=== PATIENT | male | born 1965 | race Caucasian/White ===

== ENCOUNTER 2019-12-09 09:27 | Outpatient (CLI) | payer OTHER ==
[2019-12-17] MEDS ORDERED: Psyllium Seed PO (12:43)
[2019-12-17] MEDS ORDERED: LISI-603 PO (12:43)
[2019-12-17] MEDS ORDERED: SENN-261 PO (12:43)
[2019-12-17] MEDS ORDERED: DOCU-270 PO (12:43)
[2019-12-17] MEDS ORDERED: HYDR-4384 PO (12:53)
[2019-12-17] MEDS ORDERED: ASPI-992 PO (12:53)
== END 2019-12-09 23:59 | disposition home or self-care (01) ==
LOC: DS 09:27 → LAB 23:59
PROVIDERS: ATTEND Specialist
DX: Z01.812 Encounter for preprocedural laboratory examination (principal); Z11.59 Encounter for screening for other viral diseases

== ENCOUNTER 2019-12-14 05:12 | Inpatient (IN) | payer OTHER ==
[~2019-12-14] VITALS: Ht 162.6 cm; Wt 90.7 kg
[2019-12-14] VITALS (7 sets, daily range): BP systolic 77–121; BP diastolic 41–80
--- NOTE | 2019-12-14 05:35 | NUR ---
RN sammie admission notes Received Pt for day surgery ( L total hip arthroplasty) with Dr. Tanner. Pt came from home. Pt is alert and orientedX4. Respiration is normal. No SOB. No S/S of distress noted. Pt status is NPO since last night. Inserted new IV sites at LAC# 20 with good blood returned. Pt tolerated activity well. VS is stable. Afebrile. Surgery consent is signed by Pt. Made aware of risks and benefits. Pt verbalize understanding. Pt is able to ambulate with a steady gait and with a cane. Skin assessment is done and performed. Pt's skin is intact. Pt's belonging was checked by TRINIDAD Piña. Reorient Pt to the room and the use of call light. Pt verbalize understanding. Will continue to monitor.
[2019-12-14] MEDS ORDERED: MENTHOL/CETYLPYRD (CEPACOL) 1 LOZ LOZENGE PO PRN (06:30)
[2019-12-14] MEDS ORDERED: HYDROMORPHONE 1 MG/1 ML DISP.SYRIN IV PRN ×2 (06:30→09:30)
[2019-12-14] MEDS ORDERED: diphenhydrAMINE HCL 25 MG CAPSULE PO PRN (06:30)
[2019-12-14] MEDS ORDERED: ONDANSETRON HCL/PF 4 MG/2 ML VIAL IV PRN (06:30)
[2019-12-14] MEDS ORDERED: HYDROCODONE/APAP 5/325MG 1 EACH TABLET PO PRN ×2 (06:30→09:30)
[2019-12-14] MEDS ORDERED: MAG HYDROX/AL HYDROX/SIMETH 30 ML UDC PO PRN (06:30)
[2019-12-14] MEDS ORDERED: CLONIDINE HCL 0.1 MG TABLET PO PRN (06:30)
[2019-12-14] MEDS ORDERED: MAGNESIUM HYDROXIDE 30 ML UDC PO PRN (06:30)
--- NOTE | 2019-12-14 06:30 | NUR ---
MELVIN cochran notes Pt is going for surgery.
[2019-12-14] MEDS ORDERED: BACITRACIN 50000 UNITS/VIAL ONE (06:38)
[2019-12-14] MEDS ORDERED: ANESTHESIA TRAY IN PYXIS 1 EA TRAY MC ONE (06:38)
[2019-12-14] MEDS ORDERED: BUPIVACAINE 0.5 % PF 150 MG/30 ML VIAL ONE (06:38)
[2019-12-14] MEDS ORDERED: FLUMAZENIL 0.5 MG VIAL ONE (06:48)
[2019-12-14] MEDS ORDERED: SEVOFLURANE 250 ML BOTTLE IH ONE (06:48)
[2019-12-14] MEDS ORDERED: MIDAZOLAM HCL 2 MG/2ML VIAL ONE (06:48)
[2019-12-14] MEDS ORDERED: SCOPOLAMINE HBR 1 EA PATCH.TD72 TD ONE (06:49)
--- NOTE | 2019-12-14 06:50 | NUR ---
MELVIN Weber at the bedside. Addendum: 12/14/19 at 0800 by FELIPE MONSON RN Dr. Weber at the bed side at 0550.
[2019-12-14] MEDS ORDERED: TRANEXAMIC ACID 3,000 MG in SODIUM CHLORIDE IRRIG SOLUTION 70 ML IR ONE (07:00)
[2019-12-14] MEDS ORDERED: PROPOFOL 100 ML ONE (07:46)
[2019-12-14] MEDS ORDERED: FENTANYL PF 100MCG/2ML AMPUL ONE (08:52)
[2019-12-14] MEDS ORDERED: NITROGLYCERIN 0.4 MG/TAB BOTTLE ONE (09:14)
[2019-12-14] MEDS ORDERED: DULCOLAX 10 MG/SUPP.RECT RC PRN (09:30)
[2019-12-14] MEDS ORDERED: SENOKOT 8.6 MG TABLET PO PRN (09:30)
[2019-12-14] MEDS ORDERED: AMBIEN 5 MG TABLET PO PRN (09:30)
[2019-12-14] MEDS ORDERED: TYLENOL 650 MG TABLET PO PRN (09:30)
[2019-12-14] MEDS ORDERED: COLACE 250 MG CAPSULE PO PRN (09:30)
--- NOTE | 2019-12-14 10:30 | NUR ---
RN NOTES PATIENT BACK FROM SURGERY AT THIS TIME ADMIT TELE PER COMPUTER GRAPHIC DESIGNER ORDER FOR OBSERVATION, tele monitor on sr- 79, V/S TAKEN BP 77/48, p-75, r-19, o2-2l 100 nc. patient refused pain at this time, no acute respiratory distress, dressing intact on right hip, abduction pillow on. iv access on left ac area intact started LR @ 100 ml/hr. Franks catheter darning light yellow output. post op orders taken and carried out. continued monitoring.
[2019-12-14] MEDS: DOCUSATE SODIUM 100 MG CAPSULE PO SCH ×2 (10:47→18:15)
[2019-12-14] MEDS: IV LR 1000 ML 1,000 ML IV PRN ×2 (10:50→23:13)
[2019-12-14] MEDS ORDERED: LISI40TA4 PO (11:08)
[2019-12-14] MEDS ORDERED: PANT40TA2 PO (11:08)
[2019-12-14] MEDS ORDERED: HYDR25TA4 PO (11:08)
[2019-12-14] MEDS ORDERED: NITROGLYCERIN 0.4 MG/TAB BOTTLE SL PRN (11:30)
[2019-12-14] MEDS ORDERED: Medication Not On Formulary EA (Lisinopril 40 MG) PO SCH (11:30)
[2019-12-14] MEDS ORDERED: PANTOPRAZOLE 40 MG TABLET.DR PO SCH (11:30)
[2019-12-14 12:16] LABS: BASOPHILS % (AUTO) 0.1 % (0.0-2.0); HEMATOCRIT 42 % (39-51); HEMOGLOBIN 13.7 g/dL (13.5-17.5); LYMPHOCYTES # (AUTO) 0.7 /CMM (0.8-4.8); LYMPHOCYTES % (AUTO) 5.9 % (20.0-44.0); MEAN CORPUSCULAR HGB CONC 33 g/dl (31.0-36.0); MEAN CORPUSCULAR VOLUME 88 fL (80-96); MONOCYTES # (AUTO) 0.3 /CMM (0.1-1.30); MONOCYTES % (AUTO) 2.7 % (2.0-12.0); NEUTROPHILS # (AUTO) 11.2 /CMM (1.8-8.9); NEUTROPHILS % (AUTO) 91.3 % (43.0-81.0); PLATELET COUNT (AUTO) 209 /CMM (150-450); RED BLOOD CELL COUNT(AUTO) 4.76 MIL/uL (4.5-6.0); WHITE BLOOD COUNT (AUTO) 12.2 K/uL (4.3-11.0)
[2019-12-14 12:21] LABS: CALCIUM, SERUM 8.1 mg/dL (8.5-10.1); CREATININE 0.9 mg/dL (0.6-1.3); POTASSIUM 3.6 mmol/L (3.5-5.1)
[2019-12-14 12:27] LABS: BILIRUBIN,TOTAL 0.5 mg/dL (0.2-1.0); PHOSPHORUS 2.9 mg/dL (2.5-4.9); TOTAL PROTEIN, SERUM 6.9 g/dL (6.4-8.2)
[2019-12-14] MEDS: TAMSULOSIN 0.4 MG CAP.SR.24H PO SCH ×2 (12:50→21:02)
--- NOTE | 2019-12-14 13:00 | NUR ---
RN NOTES PATIENT SCHEDULED CT OF HEART WITH 3/D EMAGS, CONSENT SIGNED.
--- NOTE | 2019-12-14 13:30 | NUR ---
RN NOTES SEEN PATIENT BY PT . PATIENT SEAT EDGE OF THE BED, AND ASSIST BACK TO THE BED.
[2019-12-14] MEDS: ANCEF 1 G in IV D5W 50 ML IV SCH ×2 (15:43→23:09)
[2019-12-14] MEDS: LISINOPRIL (20MG) 20 MG TABLET PO SCH ×2 (17:00→18:15)
--- NOTE | 2019-12-14 17:50 | NUR ---
rn notes patient state Franks catheter is painful, and asking possibility to remove. Called Marsha BARONE and get TO order remove order, order taken and carried out.
--- NOTE | 2019-12-14 18:00 | NUR ---
RN NOTES REMOVED MATHIAS AT THIS TIME OUTPUT WAS 1150 ML. ADMINISTERED SCHEDULED MEDICATION, REFUSED PAIN MEDICATION AT THIS TIME. ASSIST TURN AND REPOSTION Q 2 HR., INFUSING LR AT 100 ML/HR ON LEFT AC AREA INTACT. ENDORSED ONCOMING NURSE FOLLOW PLAN OF CARE.
[2019-12-14] MEDS: ASPIRIN 325 MG TABLET PO SCH (18:15)
--- NOTE | 2019-12-14 19:39 | NUR ---
MS RN OPENING NOTES PATIENT RECEIVED RESTING IN BED, A/O X 4. STABLE ON RA WITH BREATHING EVEN AND UNLABORED, NO SOB NOTED. NO SIGNS OF ACUTE DISTRESS. NO COMPLAINTS OF PAIN OR DISCOMFORT AT THE MOMENT. TELE MONITOR READING SR. IV LOCATED ON L AC #20 RUNNING LR @ 100 ML/HR. SAFETY PRECAUTIONS IN PLACE WITH BED IN LOWEST POSITION, CALL LIGHT WITHIN REACH, BREAKS ON, SIDE RAILS UP. WILL CONTINUE TO MONITOR THROUGHOUT THE NIGHT.
[2019-12-14] MEDS: PANTOPRAZOLE 40 MG TABLET.DR PO SCH (21:02)
[2019-12-14] MEDS ORDERED: TAMSULOSIN 0.4 MG CAP.SR.24H PO SCH (22:00)
[2019-12-15] MEDS: HYDROCODONE/APAP 10/325MG 1 EA TABLET PO PRN ×2 (02:17→21:49)
[2019-12-15] MEDS ORDERED: HYDROCODONE/APAP 10/325MG 1 EA TABLET PO ONE (04:57)
--- NOTE | 2019-12-15 06:43 | NUR ---
MS RN CLOSING NOTES PATIENT RESTING IN BED, A/O X 4. STABLE ON RA WITH BREATHING EVEN AND UNLABORED, NO SOB NOTED. NO SIGNS OF ACUTE DISTRESS. NO COMPLAINTS OF PAIN OR DISCOMFORT AT THE MOMENT. TELE MONITOR READING SR. IV LOCATED ON L AC AND R AC #20 SL. SAFETY PRECAUTIONS IN PLACE WITH BED IN LOWEST POSITION, CALL LIGHT WITHIN REACH, BREAKS ON, SIDE RAILS UP. ALL NEEDS ATTENDED TO. PATIENT NPO. WILL ENDORSE TO ONCOMING SHIFT ABOUT ANJANA.
--- NOTE | 2019-12-15 07:30 | NUR ---
RN NOTES PATIENT RECEIVED IN BED AWAKE, ALERT AND ORIENTED X 4. ON ROOM AIR WITH NO SIGNS OF RESPIRATORY DISTRESS AT THIS TIME, WITH EVEN NON-LABORED BREATHING, AND NO SOB PRESENT. SKIN WARM AND DRY TO TOUCH. IV ACCESS INTACT AND PATENT. SAFETY PRECAUTIONS IMPLEMENTED WITH BED LOCKED, BED IN THE LOWEST POSITION, BILATERAL SIDE RAILS UP, AND CALL LIGHT WITHIN EASY REACH OF THE PATIENT. WILL CONTINUE TO MONITOR PATIENT.
[2019-12-15 07:36] LABS: BASOPHILS % (AUTO) 0.3 % (0.0-2.0); EOSINOPHILS % (AUTO) 0.2 % (0.0-6.0); HEMATOCRIT 38 % (39-51); HEMOGLOBIN 12.7 g/dL (13.5-17.5); LYMPHOCYTES # (AUTO) 2.2 /CMM (0.8-4.8); LYMPHOCYTES % (AUTO) 27.9 % (20.0-44.0); MEAN CORPUSCULAR HGB CONC 33 g/dl (31.0-36.0); MEAN CORPUSCULAR VOLUME 88 fL (80-96); MONOCYTES # (AUTO) 1.1 /CMM (0.1-1.30); MONOCYTES % (AUTO) 13.9 % (2.0-12.0); NEUTROPHILS # (AUTO) 4.4 /CMM (1.8-8.9); NEUTROPHILS % (AUTO) 57.7 % (43.0-81.0); PLATELET COUNT (AUTO) 198 /CMM (150-450); RED BLOOD CELL COUNT(AUTO) 4.36 MIL/uL (4.5-6.0); WHITE BLOOD COUNT (AUTO) 7.7 K/uL (4.3-11.0)
[2019-12-15 08:00] VITALS: BP 111/64
[2019-12-15 08:01] LABS: ALANINE AMINOTRANSFERASE 106 U/L (12-78); ALBUMIN 2.8 g/dL (3.4-5.0); ALKALINE PHOSPHATASE 61 U/L (46-116); ASPARTATE AMINOTRANSFERASE 54 U/L (15-37); CALCIUM, SERUM 8.2 mg/dL (8.5-10.1); CARBON DIOXIDE 25 mmol/L (21-32); CHLORIDE 104 mmol/L (98-107); CREATININE 1.1 mg/dL (0.6-1.3); GLUCOSE 99 mg/dL (74-106); PHOSPHORUS 3.1 mg/dL (2.5-4.9); POTASSIUM 3.4 mmol/L (3.5-5.1); SODIUM SERUM 136 mmol/L (136-145); UREA NITROGEN, BLOOD 18 mg/dL (7-18)
[2019-12-15 08:30] LABS: BILIRUBIN,TOTAL 0.9 mg/dL (0.2-1.0)
[2019-12-15] MEDS: HYDROCHLOROTHIAZIDE 25 MG TABLET PO SCH (09:00)
[2019-12-15] MEDS: LISINOPRIL (20MG) 20 MG TABLET PO SCH ×2 (09:00→16:38)
[2019-12-15] MEDS: DOCUSATE SODIUM 100 MG CAPSULE PO SCH ×2 (09:05→16:36)
[2019-12-15] MEDS: ASPIRIN 325 MG TABLET PO SCH ×2 (09:05→16:36)
[2019-12-15] MEDS: SENNOSIDES 8.6 MG TABLET PO SCH ×2 (09:05→16:37)
[2019-12-15] MEDS ORDERED: POTASSIUM CHLORIDE 20 MEQ TAB.PRT.SR PO ONE (09:30)
[2019-12-15 10:30] VITALS: BP 84/60
[2019-12-15] MEDS ORDERED: ENOXAPARIN SODIUM 40 MG/0.4 ML DISP.SYRIN SQ STA (10:44)
--- NOTE | 2019-12-15 10:45 | NUR ---
RN NOTES PATIENT SEEN BY PHYSICAL THERAPY, PATIENT REPORTED FEELING DIZZY AND UNSTABLE WHEN GOT OUT OF BED WITH PHYSICAL THERAPY. CHECKED PATIENT'S BLOOD PRESSURE MANUALLY; 84/60. INFORMED DR. YUEN, ORDERED 500ml BOLUS AND NORMAL SALINE AT 80ml/hr. ALSO ORDERED TO START PATIENT ON LOVENOX 40mg SQ. WILL CARRY OUT ORDERS, AND CONTINUE TO MONITOR PATIENT.
[2019-12-15] MEDS ORDERED: ENOXAPARIN SODIUM 40 MG/0.4 ML DISP.SYRIN SQ SCH (11:00)
[2019-12-15] MEDS ORDERED: IV NS 0.9% 1,000 ML IV PRN (11:00)
[2019-12-15] MEDS ORDERED: IV NS 0.9% 500 ML IV ONE (11:00)
[2019-12-15 11:50] VITALS: BP 90/60
[2019-12-15] MEDS ORDERED: IOHEXOL-350 100 ML VIAL IV ONE (14:58)
[2019-12-15] MEDS ORDERED: IV NS 0.9% 250 ML IV ONE (14:58)
[2019-12-15] MEDS ORDERED: CT SWABBABLE VALVE TRANS SET 1 EA INFUS.SET MC ONE (14:58)
[2019-12-15] MEDS ORDERED: NITROGLYCERIN 0.4 MG/TAB BOTTLE ONE (15:12)
[2019-12-15] MEDS ORDERED: METOPROLOL TARTRATE INJ 5 MG/5 ML AMPUL ONE (15:13)
--- NOTE | 2019-12-15 15:28 | NUR ---
PATIENT TOLERATED THE PROCEDURE. VSS.
[2019-12-15] MEDS ORDERED: METOPROLOL TARTRATE INJ 5 MG/5 ML AMPUL IVP PRN (15:30)
[2019-12-15] MEDS ORDERED: NITROGLYCERIN 0.4 MG/TAB BOTTLE SL ONE (15:30)
[2019-12-15 16:00] VITALS: BP 125/72
[2019-12-15] MEDS: PSYLLIUM SEED 1 PKT PACKET PO SCH (16:37)
--- NOTE | 2019-12-15 18:46 | NUR ---
MS RN NOTES PATIENT IN BED AWAKE, ALERT AND ORIENTED X 4. ON ROOM AIR WITH NO SIGNS OF RESPIRATORY DISTRESS AT THIS TIME, WITH EVEN NON-LABORED BREATHING, AND NO SOB PRESENT. SKIN KEPT CLEAN, WARM AND DRY TO TOUCH. IV ACCESS INTACT AND PATENT. PROVIDED COMFORT MEASURES TO PATIENT AND PATIENT PRESENTS WITH NO SIGNS OF PAIN OR DISCOMFORT AT THIS TIME. MET ALL OF PATIENT'S NEEDS. SAFETY PRECAUTIONS IMPLEMENTED WITH BED LOCKED, BED IN THE LOWEST POSITION, BILATERAL SIDE RAILS UP, AND CALL LIGHT WITHIN EASY REACH OF THE PATIENT. WILL ENDORSE PLAN OF CARE TO UPCOMING NURSE.
--- NOTE | 2019-12-15 19:30 | NUR ---
MS/RN OPENING NOTES RECEIVED PATIENT RESTING IN BED. PATIENT IS ALERT AND ORIENTED X 4. PATIENT IS ON ROOM AIR TOLERATING WELL. NO SIGNS OF SOB OR RESPIRATORY NOTED. PATIENT BREATHING IS EVEN AND UNLABORED. PATIENT STATES NO PAIN AT THE MOMENT. PATIENT HAS LEFT AC #20 G IV ACCESS INTACT AND RIGHT AC #18 G RUNNING NS AT 80 ML/HR. SURGICAL SITE IS INTACT WITH NO SIGNS OF ACTIVE BLEEDING. SAFETY MEASURES ARE IN PLACE, BED IS LOCKED AND PLACED IN THE LOWEST POSITION WITH SIDE RAILS UP X 2. CALL LIGHT IS WITHIN REACH. WILL CONTINUE TO MONITOR PATIENT.
[2019-12-15 20:25] VITALS: BP 107/66
[2019-12-15] MEDS: PANTOPRAZOLE 40 MG TABLET.DR PO SCH (21:48)
[2019-12-15] MEDS: TAMSULOSIN 0.4 MG CAP.SR.24H PO SCH (21:48)
--- NOTE | 2019-12-15 21:50 | NUR ---
MS/RN NOTES PATIENT WAS COMPLAINING OF PAIN ON LEFT HIP AT SURGICAL SITE. NORCO 10 MG PO WAS GIVEN. PATIENTS V/S ARE WITHIN NORMAL LIMITS. WILL CONTINUE
--- NOTE | 2019-12-16 04:50 | NUR ---
MS/RN NOTES PHONE ORDER PER DR ELLIOTT, D/C IV FLUID. ADMINISTER TO PATIENT NORCO PRN, MYLANTA AND MAALOX. CONTINUE WITH DVT PUMPS. ORDERS HAVE BEEN CARRIED OUT. WILL CONTINUE TO MONITOR.
[2019-12-16] MEDS: HYDROCODONE/APAP 10/325MG 1 EA TABLET PO PRN ×2 (05:17→22:03)
--- NOTE | 2019-12-16 06:30 | NUR ---
MS/RN CLOSING NOTES PATIENT RESTING IN BED. PATIENT IS ALERT AND ORIENTED X 4. PATIENT IS ON ROOM AIR TOLERATING WELL. NO SIGNS OF SOB OR RESPIRATORY NOTED. PATIENT BREATHING IS EVEN AND UNLABORED. PATIENT STATES NO PAIN AT THE MOMENT. PATIENT HAS LEFT AC #20 G IV ACCESS INTACT AND RIGHT AC #18 G SL. SURGICAL SITE IS INTACT WITH NO SIGNS OF ACTIVE BLEEDING. ALL OF PATIENTS NEEDS HAVE BEEN MET DURING SHIFT. SAFETY MEASURES ARE IN PLACE, BED IS LOCKED AND PLACED IN THE LOWEST POSITION WITH SIDE RAILS UP X 2. CALL LIGHT IS WITHIN REACH. WILL ENDORSE CARE TO DAY SHIFT.
[2019-12-16 08:00] VITALS: BP 104/55
--- NOTE | 2019-12-16 08:00 | NUR ---
MS RN NOTES PATIENT IN BED RESTING NO SOB OR ACUTE DISTRESS NOTED. PATIENT ALERT, ORIENTED X4. PERIPHERAL IV INTACT PATENT. BED IN LOW LOCKED POSITION. CALL LIGHT WITHIN REACH. WILL CONTINUE TO MONITOR.
[2019-12-16] MEDS: DOCUSATE SODIUM 100 MG CAPSULE PO SCH ×2 (08:38→16:44)
[2019-12-16] MEDS: ASPIRIN 325 MG TABLET PO SCH ×2 (08:38→16:44)
[2019-12-16] MEDS: SENNOSIDES 8.6 MG TABLET PO SCH ×2 (08:38→16:44)
[2019-12-16] MEDS: PSYLLIUM SEED 1 PKT PACKET PO SCH ×2 (08:39→16:44)
[2019-12-16] MEDS: HYDROCHLOROTHIAZIDE 25 MG TABLET PO SCH (09:00)
[2019-12-16 14:53] VITALS: BP_SYST 107; BP_SYST 110; BP_SYST 135; BP_DIAS 56; BP_DIAS 58; BP_DIAS 62
[2019-12-16 16:00] VITALS: BP 118/69
--- NOTE | 2019-12-16 16:22 | NUR ---
MS RN NOTES PATIENT WAS SEEN BY PT ABLE TO AMBULATE WITH PT. WILL CONTINUE TO MONITOR.
--- NOTE | 2019-12-16 18:27 | NUR ---
MS RN NOTES PATIENT IN BED RESTING NO SOB OR ACUTE DISTRESS NOTED. PATIENT ALERT, ORIENTED X3. ALL DUE MEDICATIONS ADMINISTERED. ALL NEEDS MET. WILL ENDORSE CARE TO PM SHIFT.
--- NOTE | 2019-12-16 19:03 | NUR ---
MS RN OPENING NOTES: RECEIVED PATIENT IN BED, AWAKE, A/O X4. NO SOB NOTED. NO COMPLAIN OF PAIN. CALL LIGHT WITHIN REACH. BED IN LOWEST AND LOCKED POSITION. ABDUCTION PILLOW PLACED BETWEEN THE THIGHS/LEGS, AND INSTRUCTED PATIENT NO TO CROSS LEGS. WITH LEFT HI DRESSING CLENA DRY AND INTACT. NO BLEEDING NOTED. INCENTIVE SPIROMETER INSTRUCTED,PATIENT VERBALIZED UNDERSTANDING. WITH SCD'S ON BOTH LEGS ON. PER REPORTS PATIENT WALKED WITH PT 2X TODAY IN THE HALLWAY.
[2019-12-16 20:00] VITALS: BP 121/74
[2019-12-16] MEDS: PANTOPRAZOLE 40 MG TABLET.DR PO SCH (21:15)
[2019-12-16] MEDS ORDERED: LISINOPRIL (20MG) 20 MG TABLET PO SCH (22:00)
[2019-12-16 23:00] LABS: APPEARANCE,URINE CLEAR (CLEAR); BILIRUBIN,URINE NEGATIVE (NEGATIVE); BLOOD, URINE TRACE-INTA Ery/uL (NEGATIVE); COLOR,URINE YELLOW (YELLOW); KETONES,URINE NEGATIVE (NEGATIVE); LEUKOCYTE ESTERASE ,URINE NEGATIVE (NEGATIVE); NITRITE, URINE NEGATIVE (NEGATIVE); PROTEIN,URINE NEGATIVE (NEGATIVE); UGLUCOSE NEGATIVE (NEGATIVE); UROBILINOGEN,URINE 0.2 EU/dL (0.2)
[2019-12-17 00:01] LABS: BACTERIA,URINE None seen /HPF (None Seen); RBC,URINE 0-2 /HPF (0-2); SQUAMOUS EPITHELIAL CELL,UR Few /HPF (None Seen); WBC,URINE 0-2 /HPF (0-3)
--- NOTE | 2019-12-17 06:08 | NUR ---
MS RN CLOSING NOTES: PATIENT IN BED, AWAKE. A/O X4. NO SOB NOTED. NO COMPLAIN OF PAIN AT THIS TIME. CALL LIGHT WITHIN REACH. BED IN LOWEST AND LOCKED POSITION. ABDUCTION PILLOW IN PLACE. RESTED THROUGHOUT THE NIGHT. VOIDING GOOD THRU URINAL. HAD TEMP 99.2 LAST NIGHT. LATEST TEMP IS 98.0.
[2019-12-17 07:05] LABS: BASOPHILS # (AUTO) 0.1 /CMM (0.0-0.2); BASOPHILS % (AUTO) 0.7 % (0.0-2.0); EOSINOPHILS % (AUTO) 1.4 % (0.0-6.0); HEMATOCRIT 37 % (39-51); HEMOGLOBIN 12.3 g/dL (13.5-17.5); LYMPHOCYTES # (AUTO) 1.5 /CMM (0.8-4.8); LYMPHOCYTES % (AUTO) 18.8 % (20.0-44.0); MEAN CORPUSCULAR HGB CONC 33 g/dl (31.0-36.0); MEAN CORPUSCULAR VOLUME 89 fL (80-96); MONOCYTES # (AUTO) 0.7 /CMM (0.1-1.30); MONOCYTES % (AUTO) 9.6 % (2.0-12.0); NEUTROPHILS # (AUTO) 5.4 /CMM (1.8-8.9); NEUTROPHILS % (AUTO) 69.5 % (43.0-81.0); PLATELET COUNT (AUTO) 194 /CMM (150-450); RED BLOOD CELL COUNT(AUTO) 4.21 MIL/uL (4.5-6.0); WHITE BLOOD COUNT (AUTO) 7.8 K/uL (4.3-11.0)
[2019-12-17 07:25] LABS: CALCIUM, SERUM 8.4 mg/dL (8.5-10.1); MAGNESIUM 2.3 mg/dL (1.8-2.4); PHOSPHORUS 2.3 mg/dL (2.5-4.9); POTASSIUM 3.5 mmol/L (3.5-5.1)
--- NOTE | 2019-12-17 07:29 | NUR ---
RN NOTES RECEIVED PATIENT IN BED RESTING COMFORTABLY IN MODERATE HIGH BACK REST, A/O X4. NO SIGNS OF DISTRESS NOTED AT THIS TIME. SAFETY MEASURES IN PLACE, CALL LIGHT WITHIN REACH. BED IN LOWEST AND LOCKED POSITION. ABDUCTION PILLOW IN PLACE. WILL CONTINUE TO MONITOR.
[2019-12-17 08:00] VITALS: BP 120/72
[2019-12-17] MEDS: DOCUSATE SODIUM 100 MG CAPSULE PO SCH (08:39)
[2019-12-17] MEDS: PSYLLIUM SEED 1 PKT PACKET PO SCH (08:39)
[2019-12-17] MEDS: SENNOSIDES 8.6 MG TABLET PO SCH (08:39)
[2019-12-17] MEDS: HYDROCHLOROTHIAZIDE 25 MG TABLET PO SCH (08:39)
[2019-12-17] MEDS: ASPIRIN 325 MG TABLET PO SCH (08:40)
[2019-12-17] MEDS ORDERED: LISI-603 PO (12:43)
[2019-12-17] MEDS ORDERED: Psyllium Seed PO (12:43)
[2019-12-17] MEDS ORDERED: SENN-261 PO (12:43)
[2019-12-17] MEDS ORDERED: DOCU-270 PO (12:43)
[2019-12-17] MEDS ORDERED: ASPI-992 PO (12:53)
[2019-12-17] MEDS ORDERED: HYDR-4384 PO (12:53)
[2019-12-17] MEDS ORDERED: K PHOS NEUTRAL 250 MG TABLET PO ONE (13:00)
[2019-12-17 16:00] VITALS: BP 124/70
--- NOTE | 2019-12-17 17:27 | NUR ---
RN MS NOTES PT IN BED, AWAKE, ALERT AND ORIENTED, NO COMPLAINT OF PAIN, RESPIRATIONS NORMAL, PT FOR DISCHARGE, PT INFORMED, DISCHARGE AND MEDICATION INSTRUCTIONS PROVIDED TO PT, VERBALIZED UNDERSTANDING, BELONGINGS ACCOUNTED FOR, PRESCRIPTIONS GIVEN TO PT, ASSISTED TO WHEELCHAIR, ASSISTED TO HOSPITAL LOBBY BY MANAGER [employer], PICKED UP BY FAMILY MEMBER VIA PRIVATE CAR, LEFT IN STABLE CONDITION.
[2019-12-19 13:07] LABS: *HGBFRC HEMOGLOBIN A2 2.2 % (1.8-3.2)
== END 2019-12-17 17:20 | DRG 470 ==
LOC: DS 05:12 → MED 05:26 → TELE 12-15 03:46 → MED 12-15 11:04
PROVIDERS: ADMIT Internal Medicine; ATTEND Registered Nurse
PROC: 0SRB0JZ Replacement of Left Hip Joint with Synthetic Substitute, Open Approach (ICD-10-PCS; principal; 2019-12-14)
DX: M16.12 Unilateral primary osteoarthritis, left hip (principal); E87.1 Hypo-osmolality and hyponatremia; K21.9 Gastro-esophageal reflux disease without esophagitis; I10 Essential (primary) hypertension; F41.9 Anxiety disorder, unspecified; Z68.34 Body mass index [BMI] 34.0-34.9, adult; E66.9 Obesity, unspecified; E78.5 Hyperlipidemia, unspecified; R07.89 Other chest pain; Z82.49 Family history of ischemic heart disease and other diseases of the circulatory system; Z79.899 Other long term (current) drug therapy; D72.829 Elevated white blood cell count, unspecified
CPT/HCPCS: 36415; 75574; 80048-TC; 80053-TC; 81000-TC; 82962-TC; 83021; 83735-TC; 84100-TC; 84484-TC; 85025-TC; 85660; 87081-TC; 88305-TC; 93307-TC; 97110-TC; 97116-TC; 97530-TC; A4217; A6209; A6402; C1776; G0378; J0690; J1100; J1650; J1885; J2250; J2405; J2704; J3010; J3490; J7030; J7040; J7050; J7060; J7120; Q9967